=== PATIENT | female | born 1950 | race Two or more races ===

== ENCOUNTER 2018-11-30 08:41 | Emergency (ER) | payer MEDICARE, OTHER ==
[~2018-11-30] VITALS: Ht 160 cm; Wt 65.8 kg
[~2018-11-30 08:41] MED LIST: ACETAMINOPHEN-1 EAC1 ORAL; AMOXICILLIN500 MG ORAL; ATIVAN0.5 MG ORAL; CALCIUM500 M3 PO; ENALAPRIL MALEA10 MG ORAL; ENALAPRIL1.25 MG/ML IV; EXCEDRIN MIGRA1 EAC1 PO; LEVOTHYROXINE75 MCG ORAL; PROMETHAZI6.25 MG/1 ORAL; PROMETHAZINE HCL PO; TRAMADOL HCL50 MG ORAL; ZOFRAN ODT4 MG ORAL
[2018-11-30] MEDS ORDERED: ATORVASTATIN CA10 MG ORAL (08:54)
[2018-11-30] MEDS ORDERED: CREON DR 12,001 EACH PO (08:54)
[2018-11-30] MEDS ORDERED: TYLENOL EXTRA500 MG ORAL (08:54)
[2018-11-30] MEDS ORDERED: ZANTAC150 MG ORAL (08:54)
[2018-11-30] MEDS ORDERED: Solu-MEDROL 125mg Inj IVP ONE (09:15)
[2018-11-30] MEDS ORDERED: Ketorolac 30mg Inj IV ONE (09:15)
[2018-11-30 09:17] VITALS: BP 114/67
--- NOTE | 2018-11-30 09:17 | Emergency Room Report ---
History of Present Illness General Chief Complaint: Back Pain-No Injury Source: Patient Present Illness HPI Patient presents with complaints of lower back pain On further discussion reports that she is having discomfort to her left lower sciatic pain Reports that she has had this before in the past The history initially included also history of recent URI symptoms About 7 days ago which had started to improve but again returned Mild general weakness runny nose Denies any chest pain or cough denies any vomiting or diarrhea patient reports some mild discomfort with urination Allergies: Coded Allergies: MORPHINE (Verified Allergy, Mild, y, 06/27/17) Delusional and visual hallucination for a few days Patient History Past Medical History: see triage record Pertinent Family History: none Reviewed Nursing Documentation: PMH: Agreed; PSxH: Agreed Nursing Documentation-PMH Hx Cardiac Problems: Yes Hx Hypertension: Yes Hx Gastrointestinal Problems: Yes Hx Neurological Problems: Yes - headache, osteoparosis Review of Systems All Other Systems: negative except mentioned in HPI Physical Exam Vital Signs Date Time Temp Pulse Resp B/P (MAP) Pulse Ox O2 Delivery O2 Flow Rate FiO2 11/30/18 08:47 98.1 73 19 114/67 (83) 98 Room Air Sp02 EP Interpretation: reviewed, normal General Appearance: no apparent distress Head: normocephalic, atraumatic Eyes: bilateral eye PERRL, bilateral eye EOMI ENT: normal pharynx, no angioedema Neck: supple Respiratory: lungs clear, normal breath sounds Cardiovascular #1: regular rate, rhythm Gastrointestinal: non tender, soft, no mass Musculoskeletal: other - Tender over the left posterior superior iliac crest however, full range of motion intact in both lower extremities sensory intact Neurologic: alert, oriented x3, responsive Skin: normal color, no rash Lymphatic: no adenopathy Medical Decision Making Diagnostic Impression: Primary Impression: Back pain Additional Impression: UTI (urinary tract infection) ER Course With the history exam and presentation, multiple differentials considered, including but not limited to appendicitis, gastritis, cholecystitis, diverticulitis Other differential such as UTI and neurological symptoms also considered Patient's urine sample does show infectious pathology On further discussion there is some component of sciatic discomfort as well likely leading to the discomfort No obvious neurological deficits no obvious weakness acutely and patient is stable for initial conservative outpatient trial Labs Test 11/30/18 09:20 White Blood Count 11.6 K/UL (4.8-10.8) Red Blood Count 4.60 M/UL (4.20-5.40) Hemoglobin 13.1 G/DL (12.0-16.0) Hematocrit 39.0 % (37.0-47.0) Mean Corpuscular Volume 85 FL (80-99) Mean Corpuscular Hemoglobin 28.4 PG (27.0-31.0) Mean Corpuscular Hemoglobin Concent 33.5 G/DL (32.0-36.0) Red Cell Distribution Width 11.1 % (11.6-14.8) Platelet Count 252 K/UL (150-450) Mean Platelet Volume 8.0 FL (6.5-10.1) Neutrophils (%) (Auto) 69.6 % (45.0-75.0) Lymphocytes (%) (Auto) 20.8 % (20.0-45.0) Monocytes (%) (Auto) 8.6 % (1.0-10.0) Eosinophils (%) (Auto) 0.6 % (0.0-3.0) Basophils (%) (Auto) 0.5 % (0.0-2.0) Urine Color Yellow Urine Appearance Clear Urine pH 6.5 (4.5-8.0) Urine Specific [place] 1.015 (1.005-1.035) Urine Protein 2+ (NEGATIVE) Urine Glucose (UA) Negative (NEGATIVE) Urine Ketones 1+ (NEGATIVE) Urine Blood 4+ (NEGATIVE) Urine Nitrite Positive (NEGATIVE) Urine Bilirubin Negative (NEGATIVE) Urine Urobilinogen 1 MG/DL (0.0-1.0) Urine Leukocyte Esterase 2+ (NEGATIVE) Urine RBC 5-10 /HPF (0 - 2) Urine WBC 2-4 /HPF (0 - 2) Urine Squamous Epithelial Cells Few /LPF (NONE/OCC) Urine Bacteria Occasional /HPF (NONE) Sodium Level 140 MMOL/L (136-145) Potassium Level 4.0 MMOL/L (3.5-5.1) Chloride Level 102 MMOL/L (98-107) Carbon Dioxide Level 29 MMOL/L (21-32) Anion Gap 9 mmol/L (5-15) Blood Urea Nitrogen 15 mg/dL (7-18) Creatinine 0.9 MG/DL (0.55-1.30) Estimat Glomerular Filtration Rate > 60 mL/min (>60) Glucose Level 104 MG/DL (74-106) Calcium Level 9.3 MG/DL (8.5-10.1) Total Bilirubin 0.8 MG/DL (0.2-1.0) Aspartate Amino Transf (AST/SGOT) 20 U/L (15-37) Alanine Aminotransferase (ALT/SGPT) 26 U/L (12-78) Alkaline Phosphatase 85 U/L (46-116) Total Protein 7.9 G/DL (6.4-8.2) Albumin 3.7 G/DL (3.4-5.0) Globulin 4.2 g/dL Albumin/Globulin Ratio 0.9 (1.0-2.7) Last Vital Signs Date Time Temp Pulse Resp B/P (MAP) Pulse Ox O2 Delivery O2 Flow Rate FiO2 11/30/18 08:47 98.1 73 19 114/67 (83) 98 Room Air Status: improved Disposition: HOME, SELF-CARE Condition: Improved Scripts Trimethoprim/Sulfamethoxazole 160/800* (BACTRIM DS TABLET*) 1 Each Tablet 1 TAB ORAL Q12H, #14 TAB 0 Refills Prov: Beny Webb DO 11/30/18 Methocarbamol* (ROBAXIN-750*) 750 Mg Tablet 750 MG PO TID, #21 TAB 0 Refills Prov: Beny Webb DO 11/30/18 Cephalexin* (KEFLEX*) 500 Mg Capsule 500 MG ORAL EVERY 6 HOURS for 7 Days, CAP Prov: Beny Webb DO 11/30/18 Ibuprofen* (MOTRIN*) 600 Mg Tablet 600 MG ORAL Q8H PRN for For Pain, #15 TAB 0 Refills Prov: Beny Webb DO 11/30/18 Referrals: NON PHYSICIAN (PCP) Additional Instructions: Patient is provided with the discharge instructions notified to follow up with primary doctor in the next 2-3 days otherwise return to the er with any worsening symptoms. Please note that this report is being documented using [employer] technology. This can lead to erroneous entry secondary to incorrect interpretation by the dictating instrument. Beny Webb DO Nov 30, 2018 09:17
--- NOTE | 2018-11-30 09:17 | NUR ---
ED Nurse Note:pt. came from home with chronic back pain exacerbation since , pt. ambulatory A/Ox4
--- NOTE | 2018-11-30 09:20 | NUR ---
ED Nurse Note:blood and urine sen tto labs and pain meds are given
[2018-11-30 09:40] LABS: APPEARANCE,URINE CLEAR; BILIRUBIN, URINE NEGATIVE (NEGATIVE); GLUCOSE, URINE (UA) NEGATIVE (NEGATIVE); KETONES,URINE 1+ (NEGATIVE); LEUKOCYTE ESTERASE ,URINE 2+ (NEGATIVE); NITRITE,URINE POSITIVE (NEGATIVE); PH,URINE 6.5 (4.5-8.0); PROTEIN,URINE 2+ (NEGATIVE); UROBILINOGEN,URINE 1 MG/DL (0.0-1.0)
[2018-11-30 09:43] LABS: BASOPHILS % (AUTO) 0.5 % (0.0-2.0); EOSINOPHILS % (AUTO) 0.6 % (0.0-3.0); HEMOGLOBIN 13.1 G/DL (12.0-16.0); LYMPHOCYTES % (AUTO) 20.8 % (20.0-45.0); MEAN CORPUSCULAR VOLUME 85 FL (80-99); MONOCYTES % (AUTO) 8.6 % (1.0-10.0); NEUTROPHILS % (AUTO) 69.6 % (45.0-75.0); PLATELET COUNT 252 K/UL (150-450); RED CELL DISTRIBUTION WIDTH 11.1 % (11.6-14.8); WHITE BLOOD COUNT 11.6 K/UL (4.8-10.8)
[2018-11-30 09:47] LABS: ANION GAP 9 mmol/L (5-15); BLOOD UREA NITROGEN 15 mg/dL (7-18); CALCIUM 9.3 MG/DL (8.5-10.1); CARBON DIOXIDE 29 MMOL/L (21-32); CHLORIDE 102 MMOL/L (98-107); CREATININE 0.9 MG/DL (0.55-1.30); SODIUM 140 MMOL/L (136-145)
[2018-11-30 09:51] LABS: ALANINE AMINOTRANSFERASE 26 U/L (12-78); ALBUMIN 3.7 G/DL (3.4-5.0); ALBUMIN/GLOBULIN RATIO 0.9 (1.0-2.7); ALKALINE PHOSPHATASE 85 U/L (46-116); ASPARTATE AMINO TRANSFERASE 20 U/L (15-37); BILIRUBIN,TOTAL 0.8 MG/DL (0.2-1.0); COLOR,URINE YELLOW
[2018-11-30] MEDS ORDERED: cefTRIAXone 1 GM in NS 55 ML IVPB ONE (10:00)
[2018-11-30] MEDS ORDERED: CEPHALEXIN500 MG ORAL (10:55)
[2018-11-30] MEDS ORDERED: IBUPROFEN600 MG ORAL (10:55)
[2018-11-30] MEDS ORDERED: ROBAXIN-750750 MG PO (10:55)
[2018-11-30 10:56] VITALS: BP 116/67
[2018-11-30 10:57] VITALS: BP 114/67
--- NOTE | 2018-11-30 10:58 | NUR ---
ER DISCHARGE NOTE: Patient is cleared to be discharged per ERMD, pt is aox4, on room air, with stable vital signs. pt was given dc and prescription instructions, pt was able to verbalize understanding, pt id band and iv site removed without complications. pt is able to ambulate with steady gait. pt took all belongings.
[2018-11-30] MEDS ORDERED: BACTRIM DS TAB1 EAC1 ORAL (10:59)
== END 2018-11-30 11:16 | disposition home or self-care (01) ==
LOC: EMR 09:00
DX: M54.5 Low back pain (principal); R53.1 Weakness; I10 Essential (primary) hypertension; Z88.6 Allergy status to analgesic agent
CPT/HCPCS: 36415; 80053; 81003; 85025; 96365; 96375; 99284; J0696; J1885; J2930

== ENCOUNTER 2019-10-24 21:17 | Emergency (ER) | payer MEDICARE, OTHER ==
[~2019-10-24] VITALS: Ht 160 cm; Wt 65.8 kg
[~2019-10-24 21:17] MED LIST changes: +ATORVASTATIN CA10 MG ORAL; +BACTRIM DS TAB1 EAC1 ORAL; +CEPHALEXIN500 MG ORAL; +CREON DR 12,001 EACH PO; +IBUPROFEN600 MG ORAL; +ROBAXIN-750750 MG PO; +TYLENOL EXTRA500 MG ORAL; +ZANTAC150 MG ORAL
--- NOTE | 2019-10-24 21:40 | NUR ---
ED Nurse Note: Pt ambulated to ED from home c/o bilateral flank pain for 3 weeks, pt completed antibiotic course a week ago for UTI, N denies vomiting. Pt is A&Ox4 Hx of HTN, BP 180/70, Pt placed on rn cardiac rehab. ERMD at bedside
[2019-10-24] MEDS ORDERED: Omnipaque-300 100ml vial INJ PRN (21:45)
[2019-10-24 22:00] VITALS: BP 187/87
[2019-10-24] MEDS ORDERED: Ketorolac 30mg Inj IV ONE (22:00)
--- NOTE | 2019-10-24 22:18 | Diagnostic Imaging Report ---
EXAM: XR Chest, 1 View CLINICAL HISTORY: ABD PAIN TECHNIQUE: Frontal view of the chest. COMPARISON: None. FINDINGS: Lungs: The lungs are underexpanded, otherwise clear. Pleural space: Unremarkable. No pneumothorax. Heart: Unremarkable. No cardiomegaly. Mediastinum: Unremarkable. Bones/joints: Unremarkable. Vasculature: Atherosclerotic disease of aorta. IMPRESSION: No acute cardia pulmonary disease.
--- NOTE | 2019-10-24 22:19 | Emergency Room Report ---
History of Present Illness General Chief Complaint: Abdominal Pain Source: Patient, Family Member (Camacho Woodall MD) Present Illness HPI Patient presents with 3 weeks of abdominal pain. She describes it is fairly diffuse. However anteriorly it is on the left-hand side and the left flank but it radiates also towards the right flank. She denies fevers or chills. There is nausea without vomiting. There is no change in bowel habits and no hematochezia. She has had occasional intermittent dysuria with no change in urination. The pain is 7-8/10 at this time and constant. She has not taken any medication today for this pain. Daughter is concerned about back pain. Patient is status post colonoscopy and had polyps at that time. She also reports either an ultrasound or CAT scan that revealed renal cysts and a fatty liver in the past. She has had pain like this in the past was told that she had a urinary tract infection and muscle spasms in her back. No sore throat, chest pain, palpitations, shortness of breath, rashes, visual changes, dizziness, headache. (Camacho Woodall MD) Allergies: Coded Allergies: MORPHINE (Verified Allergy, Mild, y, 06/27/17) Delusional and visual hallucination for a few days COVID-19 Screening Contact w/high risk pt: No Recent Travel to affected area: No Experienced COVID-19 symptoms?: No COVID-19 Testing performed PRODUCTION EDITOR: No (Camacho Woodall MD) Patient History Limited by: language barrier - Daughter translated Past Medical History: see triage record Social History: Denies: smoking, alcohol use, drug use Social History Narrative Here with daughter Last Menstrual Period: n/a Reviewed Nursing Documentation: PMH: Agreed; PSxH: Agreed (Camacho Woodall MD) Nursing Documentation-PMH Hx Cardiac Problems: Yes Hx Hypertension: Yes Hx Gastrointestinal Problems: Yes Hx Neurological Problems: Yes - headache, osteoparosis (Camacho Woodall MD) Review of Systems All Other Systems: negative except mentioned in HPI (Camacho Woodall MD) Physical Exam Vital Signs Date Time Temp Pulse Resp B/P (MAP) Pulse Ox O2 Delivery O2 Flow Rate FiO2 10/24/19 21:19 97.9 66 20 187/87 (120) 96 Room Air Sp02 EP Interpretation: reviewed, normal General Appearance: well appearing, no apparent distress, GCS 15 Head: normocephalic Eyes: bilateral eye normal inspection, bilateral eye PERRL, bilateral eye EOMI ENT: other - Wearing mask Neck: supple Respiratory: lungs clear, normal breath sounds Cardiovascular #1: regular rate, rhythm Cardiovascular #2: 2+ radial (R) Gastrointestinal: normal bowel sounds, soft, no rebound, guarding - Minimal left lower quadrant, tenderness - Left lower quadrant Genitourinary: CVA tenderness (R) - Minimal Musculoskeletal: no calf tenderness, moves extm spontaneously, gait/station normal, other - No bony tenderness slight right flank pain Neurologic: oriented x3, grossly normal Psychiatric: depressed affect Skin: no rash, warm/dry (Camacho Woodall MD) Medical Decision Making Diagnostic Impression: Primary Impression: Abdominal pain Qualified Codes: R10.84 - Generalized abdominal pain Additional Impressions: Back pain Qualified Codes: M54.5 - Low back pain UTI (urinary tract infection) Qualified Codes: N30.00 - Acute cystitis without hematuria ER Course Patient weight presents with 3 weeks of abdominal pain is worsened at this time. Differential includes diverticulitis, tract infection, pancreatitis, renal stone next others. Evaluation with EKG, chest x-ray and CT of the abdomen. Abdomen is nonsurgical at the moment. Treatment with IV hydration, Zofran, Tylenol and small dose of Toradol. The patient is allergic to morphine and does not want any opiates at this time. EKG sinus rhythm rate 60 normal EKG. Antibiotics begun for pyuria/UTI. Improved with treatment. Pain now decreased to 5/10. Awaiting CT. Signed out to Dr. Miller. Laboratory Tests Test 10/24/19 21:30 10/24/19 22:10 Urine Color Pale yellow Urine Appearance Clear Urine pH 5 (4.5-8.0) Urine Specific [place] 1.020 (1.005-1.035) Urine Protein Negative (NEGATIVE) Urine Glucose (UA) Negative (NEGATIVE) Urine Ketones Negative (NEGATIVE) Urine Blood 3+ (NEGATIVE) H Urine Nitrite Negative (NEGATIVE) Urine Bilirubin Negative (NEGATIVE) Urine Urobilinogen Normal MG/DL (0.0-1.0) Urine Leukocyte Esterase 1+ (NEGATIVE) H Urine RBC 2-4 /HPF (0 - 2) H Urine WBC 5-10 /HPF (0 - 2) H Urine Squamous Epithelial Cells Moderate /LPF (NONE/OCC) H Urine Bacteria Few /HPF (NONE) White Blood Count 7.8 K/UL (4.8-10.8) Red Blood Count 4.80 M/UL (4.20-5.40) Hemoglobin 13.6 G/DL (12.0-16.0) Hematocrit 42.7 % (37.0-47.0) Mean Corpuscular Volume 89 FL (80-99) Mean Corpuscular Hemoglobin 28.4 PG (27.0-31.0) Mean Corpuscular Hemoglobin Concent 31.9 G/DL (32.0-36.0) L Red Cell Distribution Width 12.8 % (11.6-14.8) Platelet Count 281 K/UL (150-450) Mean Platelet Volume 9.2 FL (6.5-10.1) Neutrophils (%) (Auto) 52.2 % (45.0-75.0) Lymphocytes (%) (Auto) 38.2 % (20.0-45.0) Monocytes (%) (Auto) 6.7 % (1.0-10.0) Eosinophils (%) (Auto) 1.5 % (0.0-3.0) Basophils (%) (Auto) 1.4 % (0.0-2.0) Prothrombin Time 10.6 SEC (9.30-11.50) Prothrombin Time INR 1.0 (0.9-1.1) Activated Partial Thromboplast Time 25 SEC (23-33) Sodium Level 142 MMOL/L (136-145) Potassium Level 4.6 MMOL/L (3.5-5.1) Chloride Level 104 MMOL/L (98-107) Carbon Dioxide Level 29 MMOL/L (21-32) Anion Gap 9 mmol/L (5-15) Blood Urea Nitrogen 17 mg/dL (7-18) Creatinine 1.1 MG/DL (0.55-1.30) Estimated Glomerular Filtration Rate 49.3 mL/min (>60) Glucose Level 109 MG/DL (74-106) H Calcium Level 8.9 MG/DL (8.5-10.1) Total Bilirubin 0.3 MG/DL (0.2-1.0) Aspartate Amino Transferase (AST) 32 U/L (15-37) Alanine Aminotransferase (ALT) 34 U/L (12-78) Alkaline Phosphatase 52 U/L (46-116) Troponin I 0.000 ng/mL (0.000-0.056) Total Protein 8.2 G/DL (6.4-8.2) Albumin 4.0 G/DL (3.4-5.0) Globulin 4.2 g/dL Albumin/Globulin Ratio 1.0 (1.0-2.7) Lipase 389 U/L (73-393) (Camacho Woodall MD) ER Course Patient signed out to me. Patient presents with abdominal pain and back pain. Laboratory data and urinalysis showed a mild urinary tract infection. CT scan was pending and there was signed out to me. CT scan was unremarkable. Will discharge home. Patient does have renal cyst but this is a known issue per patient and her daughter. (Joel Miller MD) EKG Diagnostic Results Rate: normal Rhythm: NSR ST Segments: no acute changes (Camacho Woodall MD) Rhythm Strip Diag. Results EP Interpretation: yes Rhythm: NSR, no PVC's, no ectopy (Camacho Woodall MD) Chest X-Ray Diagnostic Results Chest X-Ray Diagnostic Results : Chest X-Ray Ordered: Yes # of Views/Limited/Complete: 1 View Indication: Other EP Interpretation: Yes Interpretation: no consolidation, no effusion, no pneumothorax Impression: No acute disease Electronically Signed by: Electronically signed by Camacho Woodall MD (Camacho Woodall MD) CT/MRI/US Diagnostic Results CT/MRI/US Diagnostic Results : Imaging Test Ordered: CT abdomen and pelvis Impression Read by radiologist. Bilateral renal cysts. Otherwise negative. (Joel Miller MD) Last Vital Signs Date Time Temp Pulse Resp B/P (MAP) Pulse Ox O2 Delivery O2 Flow Rate FiO2 10/25/19 00:15 97.9 66 20 187/87 96 Room Air Status: improved (Camacho Woodall MD) Status: improved (Joel Miller MD) Disposition: HOME, SELF-CARE Condition: Stable Scripts Nitrofurantoin Monohyd/M-Cryst (Nitrofurantoin [place]-Mcr 100 mg) 100 Mg Capsule 100 MG ORAL Q12H, #14 CAP Prov: Joel Miller MD 10/24/19 Methocarbamol* (ROBAXIN-500*) 500 Mg Tablet 500 MG ORAL TID PRN for For Pain, #30 TAB 0 Refills Prov: Joel Miller MD 10/24/19 Ibuprofen* (MOTRIN*) 600 Mg Tablet 600 MG ORAL Q6H PRN for For Pain, #30 TAB 0 Refills Prov: Joel Miller MD 10/24/19 Referrals: NOT CHOSEN IPA/,REFERRING (PCP) Patient Instructions: Abdominal Pain, Adult Additional Instructions: Follow-up with your doctor in 7 days. You may benefit from a referral to see a GI doctor for your abdominal pain. Return if symptoms worsen. Camacho Woodall MD October 24, 2019 22:19 Joel Miller MD October 24, 2019 23:39
[2019-10-24 22:42] LABS: BASOPHILS % (AUTO) 1.4 % (0.0-2.0); EOSINOPHILS % (AUTO) 1.5 % (0.0-3.0); HEMATOCRIT 42.7 % (37.0-47.0); HEMOGLOBIN 13.6 G/DL (12.0-16.0); LYMPHOCYTES % (AUTO) 38.2 % (20.0-45.0); MEAN CORPUSCULAR VOLUME 89 FL (80-99); MONOCYTES % (AUTO) 6.7 % (1.0-10.0); NEUTROPHILS % (AUTO) 52.2 % (45.0-75.0); PLATELET COUNT 281 K/UL (150-450); RED CELL DISTRIBUTION WIDTH 12.8 % (11.6-14.8); WHITE BLOOD COUNT 7.8 K/UL (4.8-10.8)
[2019-10-24 22:55] LABS: ANION GAP 9 mmol/L (5-15); BLOOD UREA NITROGEN 17 mg/dL (7-18); CALCIUM 8.9 MG/DL (8.5-10.1); CARBON DIOXIDE 29 MMOL/L (21-32); CHLORIDE 104 MMOL/L (98-107); CREATININE 1.1 MG/DL (0.55-1.30); POTASSIUM 4.6 MMOL/L (3.5-5.1); SODIUM 142 MMOL/L (136-145)
[2019-10-24 22:59] LABS: ALANINE AMINOTRANSFERASE 34 U/L (12-78); ALKALINE PHOSPHATASE 52 U/L (46-116); ASPARTATE AMINO TRANSFERASE 32 U/L (15-37); BILIRUBIN,TOTAL 0.3 MG/DL (0.2-1.0)
[2019-10-24 23:02] LABS: APPEARANCE,URINE CLEAR; BILIRUBIN, URINE NEGATIVE (NEGATIVE); COLOR,URINE PALE YELLOW; GLUCOSE, URINE (UA) NEGATIVE (NEGATIVE); KETONES,URINE NEGATIVE (NEGATIVE); LEUKOCYTE ESTERASE ,URINE 1+ (NEGATIVE); NITRITE,URINE NEGATIVE (NEGATIVE); PH,URINE 5 (4.5-8.0); PROTEIN,URINE NEGATIVE (NEGATIVE); UROBILINOGEN,URINE NORMAL MG/DL (0.0-1.0)
--- NOTE | 2019-10-24 23:03 | NUR ---
ED Nurse Note: Pt to CT
[2019-10-24] MEDS ORDERED: cefTRIAXone 1 GM in NS 55 ML IVPB ONE (23:15)
--- NOTE | 2019-10-24 23:20 | NUR ---
ED Nurse Note: Pt back from Ct, assisted pt to bathroom
--- NOTE | 2019-10-24 23:31 | Diagnostic Imaging Report ---
EXAM: CT Abdomen and Pelvis With Intravenous Contrast CLINICAL HISTORY: ABD PAIN TECHNIQUE: Axial computed tomography images of the abdomen and pelvis with intravenous contrast. CTDI is 9.3 mGy and DLP is 495.9 mGy-cm. One or more of the following dose reduction techniques were used: automated exposure control, adjustment of the mA and/or kV according to patient size, use of iterative reconstruction technique. COMPARISON: None. FINDINGS: Lung bases: Mild posterior dependent atelectasis, remainder of the lung bases are clear. ABDOMEN: Liver: Unremarkable. No mass. Gallbladder and bile ducts: Incompletely distended gallbladder with no biliary dilatation. No calcified stones. Pancreas: Unremarkable. No mass. No ductal dilation. Spleen: Unremarkable. No splenomegaly. Adrenals: Unremarkable. No mass. Kidneys and ureters: Multiple low-attenuation structures within the right kidney, largest measuring 6 mm seen within the lower pole, too small to characterize and statistically consistent with cyst. Otherwise normal right kidney. Left upper renal cyst demonstrated, with abutting gómez measuring 1.7 x 1.6 cm and 2.1 x 2.2 cm. Otherwise normal left kidney. Stomach and bowel: Unremarkable. No obstruction. No mucosal thickening. PELVIS: Appendix: Normal appendix. Bladder: Unremarkable. No mass. Reproductive: Uterus not visualized suggestive of prior hysterectomy. ABDOMEN and PELVIS: Intraperitoneal space: Unremarkable. No free air. No significant fluid collection. Bones/joints: Mild osteopenia along with degenerative disease of the spine, hips and SI joints. No acute fracture. No dislocation. Soft tissues: Unremarkable. Vasculature: Mild calcified atherosclerotic disease of aorta otherwise unremarkable retroperitoneum. No abdominal aortic aneurysm. Lymph nodes: Unremarkable. No enlarged lymph nodes. IMPRESSION: 1. Bilateral renal cyst, remainder of abdominal viscera unremarkable. 2. No acute appendicitis. No bowel obstruction.
[2019-10-24] MEDS ORDERED: ROBAXIN-500MG ORAL (23:42)
[2019-10-24] MEDS ORDERED: IBUPROFEN600 M1 ORAL (23:42)
[2019-10-24] MEDS ORDERED: MACROBID100 MG ORAL (23:43)
[2019-10-25 00:15] VITALS: BP 187/87
== END 2019-10-25 00:15 | disposition home or self-care (01) ==
LOC: EMR 21:35
DX: R10.84 Generalized abdominal pain (principal); M54.5 Low back pain; N30.00 Acute cystitis without hematuria; R11.0 Nausea; Z86.010 Personal history of colon polyps; Z88.6 Allergy status to analgesic agent; I10 Essential (primary) hypertension; N28.1 Cyst of kidney, acquired; I70.0 Atherosclerosis of aorta
CPT/HCPCS: 36415; 71045; 74177; 80053; 81003; 83690; 84484; 85025; 85610; 85730; 86850; 86900; 86901; 93005; 96361; 96365; 96375; 99284; J0696; J1885; J2405; J7030; Q9967

== ENCOUNTER 2019-12-12 22:44 | Emergency (ER) | payer MEDICARE, OTHER ==
[~2019-12-12] VITALS: Ht 160 cm; Wt 68.0 kg
[~2019-12-12 22:44] MED LIST changes: +IBUPROFEN600 M1 ORAL; +MACROBID100 MG ORAL; +ROBAXIN-500MG ORAL
--- NOTE | 2019-12-12 22:55 | NUR ---
ED Nurse Note: patient walked into ED from home accompanied by daughter d/t elevated blood pressure for 2 days, accompanied by headache and dizziness. Per daughter, systolic blood pressure was in the 190s. Patient aao x 4 and ambulatory but with weak gait. 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 Bedside commode provided. No acute distress noted during assessment.
--- NOTE | 2019-12-12 23:09 | Emergency Room Report ---
History of Present Illness General Chief Complaint: General Complaint Source: Patient Present Illness HPI This is a 69-year-old female with history of hypertension. She presents with chief complaint of headache and dizziness. Onset for the last few days. She complained of headache to the right side. Said the room is spinning. She fell a couple times when she tried move around. She fell onto the bed. No trauma. Also complained of intermittent chest pain because of the headache. No fever chills. Nausea but no vomiting. Pain in her chest lasts only a few seconds. Also said her blood pressure was high at home. Blood pressure was systolic in the 190s. She had dizziness many years ago but it resolved. Allergies: Coded Allergies: MORPHINE (Verified Allergy, Mild, y, 06/27/17) Delusional and visual hallucination for a few days COVID-19 Screening Contact w/high risk pt: No Recent Travel to affected area: No Experienced COVID-19 symptoms?: No COVID-19 Testing performed LEARNING AND DEVELOPMENT ANALYST: No Patient History Past Medical History: see triage record, old chart reviewed, HTN Past Surgical History: other Pertinent Family History: none Social History: Denies: smoking Last Menstrual Period: n/a Now: No Immunizations: other Reviewed Nursing Documentation: PMH: Agreed; PSxH: Agreed Nursing Documentation-PMH Past Medical History: No History, Except For Hx Cardiac Problems: Yes Hx Hypertension: Yes Hx Gastrointestinal Problems: Yes Hx Neurological Problems: Yes - headache, osteoparosis Review of Systems Eye: Denies: eye pain, blurred vision ENT: Denies: ear pain, nose congestion, throat swelling Respiratory: Denies: cough, shortness of breath Cardiovascular: Reports: chest pain; Denies: palpitations Gastrointestinal: Reports: nausea; Denies: abdominal pain, diarrhea, vomiting Musculoskeletal: Denies: back pain, joint pain Skin: Denies: rash Neurological: Reports: headache, dizziness; Denies: numbness Endocrine: Denies: increased thirst, increased urine Hematologic/Lymphatic: Denies: easy bruising All Other Systems: negative except mentioned in HPI Physical Exam Vital Signs Date Time Temp Pulse Resp B/P (MAP) Pulse Ox O2 Delivery O2 Flow Rate FiO2 12/12/19 22:47 98.1 63 18 155/77 (103) 94 Room Air Vitals with high blood pressure Sp02 EP Interpretation: reviewed, normal General Appearance: well appearing, no apparent distress, alert Head: normocephalic, atraumatic Eyes: bilateral eye PERRL, bilateral eye EOMI ENT: hearing grossly normal, normal pharynx Neck: full range of motion, supple, no meningismus Respiratory: chest non-tender, lungs clear, normal breath sounds Cardiovascular #1: regular rate, rhythm, no murmur Gastrointestinal: normal bowel sounds, non tender, no mass, no organomegaly, no bruit, non-distended Musculoskeletal: back normal, normal range of motion, gait/station normal Psychiatric: mood/affect normal Medical Decision Making Diagnostic Impression: Primary Impression: Headache Qualified Codes: R51 - Headache Additional Impression: Dizziness, nonspecific ER Course Patient presents with headache and dizziness. Daughter said that she does have a history of migraine which she take gabapentin. No evidence of intracranial bleed, meningitis or neoplastic process. Labs unremarkable. Blood pressure is 116/48 right now. No evidence of ACS, PE, dissection to name a few. Will discharge home. EKG Diagnostic Results Rate: normal Rhythm: NSR ST Segments: no acute changes Rhythm Strip Diag. Results EP Interpretation: yes Rate: 63 Rhythm: NSR, no PVC's, no ectopy Chest X-Ray Diagnostic Results Chest X-Ray Diagnostic Results : Chest X-Ray Ordered: Yes # of Views/Limited/Complete: 1 View Indication: Chest Pain EP Interpretation: Yes Interpretation: no consolidation, no effusion, no pneumothorax, no acute cardiopulmonary disease Impression: No acute disease Electronically Signed by: Joel Miller MD CT/MRI/US Diagnostic Results CT/MRI/US Diagnostic Results : Imaging Test Ordered: Ct head Impression Read by radiologist. Neg. Last Vital Signs Date Time Temp Pulse Resp B/P (MAP) Pulse Ox O2 Delivery O2 Flow Rate FiO2 12/12/19 22:47 98.1 63 18 155/77 (103) 94 Room Air Status: improved Disposition: HOME, SELF-CARE Condition: Stable Scripts Acetamin/Butalbital/Caffeine* (FIORICET*) 1 Ea Tab 1 TAB ORAL Q6H, #15 TAB 0 Refills Prov: Joel Miller MD 12/13/19 Meclizine Hcl* (MECLIZINE*) 25 Mg Tablet 25 MG ORAL THREE TIMES A DAY, #30 TAB Prov: Joel Miller MD 12/13/19 Additional Instructions: Follow-up with your doctor in 3 to 5 days if not better. If symptoms continue, you may need referral to see a neurologist. Return if worse. Joel Miller MD Dec 12, 2019 23:09
[2019-12-12] MEDS ORDERED: LORazepam Inj 2mg/ml 1ml IV ONE (23:15)
[2019-12-12 23:19] VITALS: BP 123/55
[2019-12-12 23:20] LABS: APPEARANCE,URINE CLEAR; BILIRUBIN, URINE NEGATIVE (NEGATIVE); COLOR,URINE PALE YELLOW; GLUCOSE, URINE (UA) NEGATIVE (NEGATIVE); KETONES,URINE NEGATIVE (NEGATIVE); LEUKOCYTE ESTERASE ,URINE 1+ (NEGATIVE); NITRITE,URINE NEGATIVE (NEGATIVE); PH,URINE 6.5 (4.5-8.0); PROTEIN,URINE NEGATIVE (NEGATIVE); UROBILINOGEN,URINE NORMAL MG/DL (0.0-1.0)
[2019-12-12 23:22] LABS: BASOPHILS % (AUTO) 0.8 % (0.0-2.0); EOSINOPHILS % (AUTO) 1.2 % (0.0-3.0); HEMATOCRIT 39.7 % (37.0-47.0); LYMPHOCYTES % (AUTO) 30.7 % (20.0-45.0); MEAN CORPUSCULAR VOLUME 88 FL (80-99); MONOCYTES % (AUTO) 5.9 % (1.0-10.0); NEUTROPHILS % (AUTO) 61.4 % (45.0-75.0); PLATELET COUNT 240 K/UL (150-450); RED BLOOD COUNT 4.53 M/UL (4.20-5.40); RED CELL DISTRIBUTION WIDTH 11.6 % (11.6-14.8); WHITE BLOOD COUNT 9.1 K/UL (4.8-10.8)
--- NOTE | 2019-12-12 23:23 | NUR ---
ED Nurse Note: Daughter reports patient fell twice this weekend due to dizziness and describes it as the "room spinning". No head trauma/injury reported.
--- NOTE | 2019-12-12 23:26 | NUR ---
ED Nurse Note: Xray at bedside
[2019-12-12 23:38] LABS: ANION GAP 9 mmol/L (5-15); BLOOD UREA NITROGEN 21 mg/dL (7-18); CALCIUM 8.8 MG/DL (8.5-10.1); CARBON DIOXIDE 30 MMOL/L (21-32); CHLORIDE 104 MMOL/L (98-107); CREATININE 1.2 MG/DL (0.55-1.30); POTASSIUM 3.7 MMOL/L (3.5-5.1); SODIUM 143 MMOL/L (136-145)
--- NOTE | 2019-12-12 23:38 | NUR ---
ED Nurse Note: patient taken to CT in stable condition
[2019-12-12 23:43] LABS: ALANINE AMINOTRANSFERASE 17 U/L (12-78); ALKALINE PHOSPHATASE 63 U/L (46-116); ASPARTATE AMINO TRANSFERASE 18 U/L (15-37); BILIRUBIN,TOTAL 0.3 MG/DL (0.2-1.0)
--- NOTE | 2019-12-13 00:03 | Diagnostic Imaging Report ---
EXAM: CT Head Without Intravenous Contrast CLINICAL HISTORY: DIZZY TECHNIQUE: Axial computed tomography images of the head/brain without intravenous contrast. CTDI is 53 mGy and DLP is 1072 mGy-cm. One or more of the following dose reduction techniques were used: automated exposure control, adjustment of the mA and/or kV according to patient size, use of iterative reconstruction technique. COMPARISON: No relevant prior studies available. FINDINGS: Brain: Unremarkable. No hemorrhage. No significant white matter disease. No edema. Ventricles: Unremarkable. No ventriculomegaly. Bones/joints: Unremarkable. No acute fracture. Soft tissues: Unremarkable. Sinuses: Unremarkable as visualized. No acute sinusitis. Mastoid air cells: Unremarkable as visualized. No mastoid effusion. IMPRESSION: No acute findings
[2019-12-13] MEDS ORDERED: FIORICET1 EA ORAL (00:10)
[2019-12-13] MEDS ORDERED: MECLIZINE HCL25 MG ORAL (00:10)
--- NOTE | 2019-12-13 00:11 | Diagnostic Imaging Report ---
EXAM: XR Chest, 1 View CLINICAL HISTORY: CP TECHNIQUE: Frontal view of the chest. COMPARISON: 10/24/19 FINDINGS: No significant interval changes. Negative for cardiac enlargement. Negative for focal consolidation, pneumothorax or pleural fluid collections.
[2019-12-13] MEDS ORDERED: Ketorolac 30mg Inj IV ONE (00:15)
[2019-12-13 00:35] VITALS: BP 114/48
--- NOTE | 2019-12-13 00:35 | NUR ---
ER DISCHARGE NOTE: Patient is cleared to be discharged per ERMD, pt is aox4, on room air, with stable vital signs. pt and daughter was given dc and prescription instructions, pt and daughter was able to verbalize understanding, pt id band and iv site removed intact without complications. pt assisted to daughter's car via wheelchair. pt took all belongings. patient stable upon discharge.
== END 2019-12-13 00:35 | disposition home or self-care (01) ==
LOC: EMR 23:12
DX: R51 Headache (principal); R42 Dizziness and giddiness; I10 Essential (primary) hypertension; R07.9 Chest pain, unspecified; Z88.6 Allergy status to analgesic agent; M81.0 Age-related osteoporosis without current pathological fracture
CPT/HCPCS: 36415; 70450; 71045; 80053; 81003; 84484; 85025; 93005; 96361; 96374; 96375; 99284; J1885; J2405; J7030